=== PATIENT | female | born 2005 | race African-American/Black ===

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

== ENCOUNTER 2024-07-23 05:16 | Emergency (ER) | payer BC, OTHER | END 2024-07-23 07:35 | disposition home or self-care (01) | LOC: CSHERS 05:16 | DX: O20.9 Hemorrhage in early pregnancy, unspecified (principal); Z3A.01 Less than 8 weeks gestation of pregnancy | CPT/HCPCS: 76856 ==